=== PATIENT | female | born 2000 | race Two or more races ===

== ENCOUNTER 2024-11-11 10:36 | Outpatient (AMB) | payer MEDICAID, SELFPAY ==
--- NOTE | 2024-11-11 11:16 | OBCLNT_ITS ---
Vital Signs 11/11/24 11:17 Height 1.52 m Height Method Stated Weight 61.802 kg Weight Measurement Method Standing Scale BMI 26.6 BP 101/70 Blood Pressure Source Automatic Cuff Blood Pressure Location Left Upper Arm Position Sitting Respiration 20 Pulse 101 H Pulse Source Monitor Temp 98.1 F Temp Source Oral Pulse Oximetry (%) 98 Oxygen Delivery Method Room Air Allergies/Home Meds Allergies & Medications Allergies No Known Allergies Allergy (Verified 11/11/24 11:18) Medication Reconciliation No Known Home Medications 11/11/24 [History Confirmed 11/11/24] Intake Visit Data Collection New Patient or Established: Established Patient (seen at [facility] within 3 years) Reason for Visit:: CARE Seen by Clinical Staff ONLY (RN/MA): No Car Changer Required: No Do You Feel Safe at Home: Yes Authorities Contacted: N/A PCP or OBGYN visit in last 3 months: Yes Hx Now: Yes Are you currently on any form of Control: No Last menstrual period: 11/17/23 Pain Present Currently: No Pain Scale Used: Mathis-Curiel/Numerical Pain scale:: 0 Smoking Status Smoking Status: Never smoker Questionnaires Covid-19 Vaccine Questionnaire Has patient been vacinated for Covid-19 Have you been vacinated for Covid-19: Yes PHQ-9 PHQ-2 Over the last 2 weeks, how often have you been bothered by any of the following problems? 1. Little interest or pleasure in doing things: not at all 2. Feeling down, depressed, or hopeless: not at all Total score: 0 PHQ-9 3. Trouble falling or staying asleep, or sleeping too much: Not at all 4. Feeling tired or having little energy: Not at all 5. Poor appetite or overeating: Not at all 6. Feeling bad about yourself - or that you are a failure or have let yourself or your family down: Not at all 7. Trouble concentrating on things, such as reading the newspaper or watching television: Not at all 8. Moving or speaking so slowly that other people could have noticed? - Or the opposite - being so fidgety or restless that you have been moving around a lot more than usual: not at all 9. Thoughts that you would be better off or of hurting yourself in some way: Not at all Total score: 0 Source: Developed by Drs. Leroy Peralta, [place] Perez, [place] Marley and colleagues, with an educational raleigh from [employer]. Depression screen completed yes Social History Living Situation History Marital Status: Life Partner Lives With: Family Housing: House Tobacco History Smoking Status: Never smoker Second Hand Smoke Exposure: No Alcohol History Alcohol Intake: Never Domestic Abuse History Do You Feel Safe at Home: Yes History of Present Illness HPI Narrative 24-year-old 1 para 0 for OBI. Patient is a transfer care from Dr. Lawton's office with records. Patient has a history of irregular menses and no dates. Her last menstrual period was November 17, 2023. First ultrasound August 21, 2024. Patient was 20 weeks 5 days at that time and that corrected EDC to January 03, 2025. Patient denies any existence of social habits. Denies surgery. Denies chronic illness. Patient is O-. Antibody screen negative. She got RhoGAM at 28 weeks. CBC was 43/hemoglobin 14.7/platelets 193. RPR nonreactive. HIV negative. Hepatitis B negative. Hepatitis C negative. Patient is rubella immune. aFP, NIPT and carrier screens all negative. She had a abnormal 1 hour GTT of 145. But her repeat RPR was nonreactive. A1c 4.9 reports good movement. Denies leaking, bleeding, contractions. Patient would like Tdap if she did not get it already with Dr. Lawton OB Initial Visit OB Flowsheet OB Flowsheet Initial Weight: Not Recorded Date -?-?-?-?-?-?-?-?-?-?-?-?- EGA Weight BP Alb Glu CTX Pres Fundal ht FHR Mov Dilation Station Effacement Hx Notes Visit Note 11/11/24 -?-?-?-?-?-?-?-?-?-?-?-?- 32w 3d 61.802 kg 101/70 absent unknown 31 145 active 24-year-old 1 para 0 for OBI. Patient is a transfer from Dr. Lawton's with records. Denies any problems with the so far. She had abnormal 1 hour. She has no dates. Based on a 20-week ultrasound in August patient is 32 weeks today with a corrected EDC of January 03, 2025 Tdap next visit if patient did not get it at Dr. Lawton's. 3-hour GTT ordered. Sono at [facility] for growth. Discussed labor precautions. Continue vitamins. Return in 2 weeks OB check Menstrual History Menstrual reliability: definite Flow: normal Menstrual regularity: regular Monthly: Yes On control pills at conception: No Associated symptoms (LMP): Reports fatigue and breast tenderness OB History : 1 Infection History & Risk Evaluation History of STDs: none Genetic Screening & History Genetic Screening/Teratology Counseling - Includes patient, baby's father, or anyone in either family with: 1. Patient's age 35 years or older as of estimated date of delivery: No 2. Thalassemia (Angolan, Belarusian, Mediterranean, or Background); MCV less than 80: No 3. Neural Tube Defect (Meningomyelocele, Spina Bifida, or Anencephaly): No 4. Congenital Heart Defect: No 5. Down Syndrome: No 6. Orion-Sachs (Ashkenazi Congregational, Cajun, Welsh Sandy): No 7. Edenilson Disease (Ashkenazi Congregational): No 8. Familial Dysautonomia (Ashkenazi Congregational): No 9. Sickle Cell Disease or Trait (): No 10. Hemophilia or other blood disorders: No 11. Muscular Dystrophy: No 12. Cystic Fibrosis: No 13. Rodney's Chorea: No 14. Mental Retardation/Autism: No 15. Other inherited genetic or chromosomal disorder: No 16. Maternal Metabolic Disorder (EG,TYPE 1 Diabetes, PKU): No 17. Patient or baby's father had a child with defects not listed above: No 18. Recurrent loss or a stillbirth: No 19. Medications (including supplements, vitamins, herbs or otc drugs)/illicit/recreational drugs/alcohol since last menstrual period: No 20. Any other: No Infection History 1. Live with someone with TB or exposed to TB: No 2. Rash or viral illness since last menstrual period: No 3. Hepatitis B,C: No Other (see comments) Source: [employer] Review of Systems Review of Systems Systems Reviewed: All systems reviewed, normal except as documented Constitutional Constitutional: Reports fatigue Endocrine Endocrine: Reports fatigue Exam General Limitations: no limitations General Appearance: alert, in no apparent distress, comfortable, cooperative, healthy appearing, well developed and well groomed Head Head exam: atraumatic, normocephalic and normal inspection Neck Neck exam: Present normal inspection, full ROM and trachea midline Chest Chest inspection: Present normal inspection and symmetric chest wall rise Resp Respiratory exam: Present normal lung sounds bilaterally Card Cardiovascular exam: Present regular rate, normal rhythm and normal heart sounds Abdominal Abdominal exam: Present soft and normal bowel sounds Psych Psychiatric exam: Present normal affect and normal mood Office Procedures OB Clinic LOC & Office Proc's Nursing/Assessment Patient Status: Initial/New Patient OB Clinic Nursing Assessment: Medication Reconciliation, Update PMH in EMR and Vital Signs OB Clinic Coordination of Care: Complex Care and Chronic Disease 1-5, Consen t,records obtained, informed consent, Education Simp Pt/Fam, Lab and Imaging orders, Results/Orders obtained and Staff clarify orders Special Needs: Heart tones New Patient Charge New Patient Point Assignment: [id number] New Patient Point Charge: ACADEMIC RECORDS SPECIALIST Level 4 ([id number]) Assessment & Plan Diagnosis / Problem List (1) Encounter for supervision of high risk in third trimester, antepartum: Status: Acute (2) Size of fetus inconsistent with dates in third trimester: Status: Acute Plan 3-hour GTT. Patient scheduled for growth sono at [facility]. Discussed labor precautions. Offered Tdap. Patient will get it if she did not get Dr. Lawton's. Kick count twice a day. Return in 2 weeks OB to Additional Plan Follow Up: 2 Weeks (obc)
[2024-11-11 11:17] VITALS: BP 101/70; PULSE 101; RESP 20; TEMP 36.7; O2SAT 98; BMI 26.6
== END 2024-11-11 11:36 | disposition home or self-care (01) ==
PROVIDERS: Supervising Provider Advanced Practice Midwife; Visit Provider Advanced Practice Midwife
DX: O09.893 Supervision of other high risk pregnancies, third trimester (principal); Z3A.32 32 weeks gestation of pregnancy; O26.843 Uterine size-date discrepancy, third trimester
CPT/HCPCS: 99204; G0463

== ENCOUNTER 2024-11-25 11:33 | Outpatient (AMB) | payer MEDICAID, SELFPAY ==
[2024-11-25 11:51] VITALS: BP 104/72; PULSE 110; RESP 16; TEMP 36.2; O2SAT 98; BMI 27.7
--- NOTE | 2024-11-25 11:51 | OBCLNT_ITS ---
Vital Signs 11/25/24 11:51 Height 1.52 m Height Method Stated Weight 64.127 kg Weight Measurement Method Standing Scale BMI 27.7 BP 104/72 Blood Pressure Source Automatic Cuff Blood Pressure Location Left Upper Arm Position Sitting Respiration 16 Pulse 110 H Pulse Source Monitor Temp 97.2 F Temp Source Oral Pulse Oximetry (%) 98 Oxygen Delivery Method Room Air Allergies/Home Meds Allergies & Medications Allergies No Known Allergies Allergy (Verified 11/25/24 11:52) Medication Reconciliation No Known Home Medications 11/11/24 [History Confirmed 11/25/24] Intake Visit Data Collection New Patient or Established: Established Patient (seen at [facility] within 3 years) Reason for Visit:: OBC Seen by Clinical Staff ONLY (RN/MA): No Betting Agency Counter Clerk Required: No Do You Feel Safe at Home: Yes Authorities Contacted: N/A PCP or OBGYN visit in last 3 months: Yes Date of Last PCP or OBGYN visit: 11/11/24 Hx Now: Yes Are you currently on any form of Control: No Pain Present Currently: No Pain Scale Used: Mathis-Curiel/Numerical Pain scale:: 0 Smoking Status Smoking Status: Never smoker Questionnaires Covid-19 Vaccine Questionnaire Has patient been vacinated for Covid-19 Have you been vacinated for Covid-19: Yes PHQ-9 PHQ-2 Over the last 2 weeks, how often have you been bothered by any of the following problems? 1. Little interest or pleasure in doing things: not at all 2. Feeling down, depressed, or hopeless: not at all Total score: 0 PHQ-9 3. Trouble falling or staying asleep, or sleeping too much: Not at all 4. Feeling tired or having little energy: Not at all 5. Poor appetite or overeating: Not at all 6. Feeling bad about yourself - or that you are a failure or have let yourself or your family down: Not at all 7. Trouble concentrating on things, such as reading the newspaper or watching television: Not at all 8. Moving or speaking so slowly that other people could have noticed? - Or the opposite - being so fidgety or restless that you have been moving around a lot more than usual: not at all 9. Thoughts that you would be better off or of hurting yourself in some way: Not at all Total score: 0 If you checked off any problems, how difficult have these problems made it for you to do your work, take care of things at home, or get along with other people?: not difficult at all Source: Developed by Drs. Leroy Peralta, [place] Perez, [place] Marley and colleagues, with an educational raleigh from [employer]. Depression screen completed yes Social History Living Situation History Marital Status: Lives With: Family Housing: House Tobacco History Smoking Status: Never smoker Second Hand Smoke Exposure: No Alcohol History Alcohol Intake: Never Domestic Abuse History Do You Feel Safe at Home: Yes Care OB Visit Log OB Flowsheet Initial Weight: Not Recorded Date -?-?-?-?-?-?-?-?-?-?-?-?- EGA Weight BP Alb Glu CTX Pres Fundal ht FHR Mov Dilation Station Effacement Hx Notes Visit Note 11/11/24 -?-?-?-?-?-?-?-?-?-?-?-?- 32w 3d 61.802 kg 101/70 absent unknown 31 145 active 24-year-old 1 para 0 for OBI. Patient is a transfer from Dr. Lawton's with records. Denies any problems with the so far. She had abnormal 1 hour. She has no dates. Based on a 20-week ultrasound in August patient is 32 weeks today with a corrected EDC of January 03, 2025 Tdap next visit if patient did not get it at Dr. Lawton's. 3-hour GTT ordered. Sono at [facility] for growth. Discussed labor precautions. Continue vitamins. Return in 2 weeks OB check 11/25/24 -?-?-?-?-?-?-?-?-?-?-?-?- 34w 3d 64.127 kg 104/72 absent cephalic 34 145 active doing well. good movement. denies UC,VB,LOF. no PIH complaints discuss 3 hr gtt, avoid sugary food. discuss {PTL ptrecaution, fkc bid. f/u sono this week. rtc 2 weeks DIONE Calculator Estimated Delivery Date Method Current WG Current Estimate 01/03/25 Ultrasound #1 34w 3d Other Estimates 08/23/24 LMP (Uncertain) 53w 3d 01/03/25 Manual 34w 3d No Dates, final DIONE: 01/03/25 Notes Visit Date: 11/25/24 Last Updated by: Zulema Castañeda CNM 11/12/24: 3 hr gtt wnl all value Visit Date: 11/11/24 Last Updated by: Zulema Castañeda CNM 24 yo . No Dates. 1st sono: 08/21/24. IUP 20w5. EDC: 01/03/25 OB panel: O-/ABS-. Rhogam given at 28 week. 43/14/193, rpr;;nr, rub imm, HBSAG-, HIV-, GC/CT-. AFP/NIPT/carrier screen-, 1 hr gtt: 145. A1c: 4.9, repeat RPR: NR Office Procedures OBC Clinic LOC & Office Proc's Nursing/Assessment Patient Status: Established Patient OB Clinic Nursing Assessment: Medication Reconciliation, Update PMH in EMR and Vital Signs OB Clinic Coordination of Care: Education Complex Pt/Fam, Consent,records obtained, informed consent, Lab and Imaging orders, Results/Orders obtained and Staff clarify orders Special Needs: Heart tones Established Patient Charge Established Patient Point Assignment: 115 Established Patient Point Charge: EP Level 3 (80-115) Assessment & Plan Diagnosis / Problem List (1) Encounter for supervision of high risk in third trimester, antepartum: Status: Acute Plan discuss PTL s/s, review fkv bid. f/u sono this week, discuss 3hr gtt results, discuss diet and weight. walk 40 minute daily. rtc 2 week for GBS Additional Plan Follow Up: 2 Weeks (gbs)
== END 2024-11-25 12:02 | disposition home or self-care (01) ==
LOC: HODSOBC 11:33
PROVIDERS: Supervising Provider Advanced Practice Midwife; Visit Provider Advanced Practice Midwife
DX: O09.93 Supervision of high risk pregnancy, unspecified, third trimester (principal); Z3A.34 34 weeks gestation of pregnancy
CPT/HCPCS: 99213; G0463

== ENCOUNTER 2024-12-08 09:32 | Outpatient (AMB) | payer MEDICAID, SELFPAY ==
--- NOTE | 2024-12-08 10:03 | OBCLNT_ITS ---
Vital Signs 12/08/24 10:04 Height 1.52 m Height Method Stated Weight 65.771 kg Weight Measurement Method Standing Scale BMI 28.4 BP 120/88 H Blood Pressure Source Automatic Cuff Blood Pressure Location Right Upper Arm Position Sitting Respiration 17 Pulse 84 Pulse Source Monitor Temp 97.9 F Temp Source Temporal Artery Scan Pulse Oximetry (%) 98 Oxygen Delivery Method Room Air Allergies/Home Meds Allergies & Medications Allergies No Known Allergies Allergy (Verified 12/08/24 10:06) Medication Reconciliation No Known Home Medications 11/11/24 [History Confirmed 12/08/24] Intake Visit Data Collection New Patient or Established: Established Patient (seen at [facility] within 3 years) Reason for Visit:: OBC Seen by Clinical Staff ONLY (RN/MA): No Concrete Engineering Technician Required: No Do You Feel Safe at Home: Yes Authorities Contacted: N/A PCP or OBGYN visit in last 3 months: Yes Date of Last PCP or OBGYN visit: 11/25/24 Hx Now: Yes Are you currently on any form of Control: No Pain Present Currently: No Pain Scale Used: Mathis-Curiel/Numerical Pain scale:: 0 Smoking Status Smoking Status: Never smoker Questionnaires Covid-19 Vaccine Questionnaire Has patient been vacinated for Covid-19 Have you been vacinated for Covid-19: Yes PHQ-9 PHQ-2 Over the last 2 weeks, how often have you been bothered by any of the following problems? 1. Little interest or pleasure in doing things: not at all 2. Feeling down, depressed, or hopeless: not at all Total score: 0 PHQ-9 3. Trouble falling or staying asleep, or sleeping too much: Not at all 4. Feeling tired or having little energy: Not at all 5. Poor appetite or overeating: Not at all 6. Feeling bad about yourself - or that you are a failure or have let yourself or your family down: Not at all 7. Trouble concentrating on things, such as reading the newspaper or watching television: Not at all 8. Moving or speaking so slowly that other people could have noticed? - Or the opposite - being so fidgety or restless that you have been moving around a lot more than usual: not at all 9. Thoughts that you would be better off or of hurting yourself in some way: Not at all Total score: 0 If you checked off any problems, how difficult have these problems made it for you to do your work, take care of things at home, or get along with other people?: not difficult at all Source: Developed by Drs. Leroy Peralta, [place] Perez, [place] Marley and colleagues, with an educational raleigh from [employer]. Social History Living Situation History Marital Status: Life Partner Lives With: Family Housing: House Tobacco History Smoking Status: Never smoker Second Hand Smoke Exposure: No Alcohol History Alcohol Intake: Never Domestic Abuse History Do You Feel Safe at Home: Yes Care OB Visit Log OB Flowsheet Initial Weight: Not Recorded Date -?-?-?-?-?-?-?-?-?-?-?-?- EGA Weight BP Alb Glu CTX Pres Fundal ht FHR Mov Dilation Station Effacement Hx Notes Visit Note 11/11/24 -?-?-?-?-?-?-?-?-?-?-?-?- 32w 3d 61.802 kg 101/70 absent unknown 31 145 active 24-year-old 1 para 0 for OBI. Patient is a transfer from Dr. Lawton's with records. Denies any problems with the so far. She had abnormal 1 hour. She has no dates. Based on a 20-week ultrasound in August patient is 32 weeks today with a corrected EDC of January 03, 2025 Tdap next visit if patient did not get it at Dr. Lawton's. 3-hour GTT ordered. Sono at [facility] for growth. Discussed labor precautions. Continue vitamins. Return in 2 weeks OB check 11/25/24 -?-?-?-?-?-?-?-?-?-?-?-?- 34w 3d 64.127 kg 104/72 absent cephalic 34 145 active doing well. good movement. denies UC,VB,LOF. no PIH complaints discuss 3 hr gtt, avoid sugary food. discuss {PTL ptrecaution, fkc bid. f/u sono this week. rtc 2 weeks 12/08/24 -?-?-?-?-?-?-?-?-?-?-?-?- 36w 2d 65.771 kg 120/88 occasional cephalic 36 140 active doing well. report good FM. denies leaking,bleeding or regular contraction GBS today. discuss labor precaution, fkc bid, discuss danger s/s and ER precaution. rtc 1 week obc DIONE Calculator Estimated Delivery Date Method Current WG Current Estimate 01/03/25 Ultrasound #1 36w 2d Other Estimates 08/23/24 LMP (Uncertain) 55w 2d 01/03/25 Manual 36w 2d No Dates, final DIONE: 01/03/25 Notes Visit Date: 11/25/24 Last Updated by: Zulema Castañeda CNM 11/12/24: 3 hr gtt wnl all value Visit Date: 11/11/24 Last Updated by: Zulema Castañeda CNM 24 yo . No Dates. 1st sono: 08/21/24. IUP 20w5. EDC: 01/03/25 OB panel: O-/ABS-. Rhogam given at 28 week. 43/14/193, rpr;;nr, rub imm, HBSAG-, HIV-, GC/CT-. AFP/NIPT/carrier screen-, 1 hr gtt: 145. A1c: 4.9, repeat RPR: NR Office Procedures OBC Clinic LOC & Office Proc's Nursing/Assessment Patient Status: Established Patient OB Clinic Nursing Assessment: Medication Reconciliation, Update PMH in EMR and Vital Signs OB Clinic Coordination of Care: Complex Care and Chronic Disease 1-5, Education Complex Pt/Fam, Consent,records obtained, informed consent, Lab and Imaging orders and Staff clarify orders Special Needs: Heart tones Miscellaneous Interventions: Culture Specimen Collection Established Patient Charge Established Patient Point Assignment: 150 Established Patient Point Charge: EP Level 4 (120-155) Assessment & Plan Diagnosis / Problem List (1) Encounter for supervision of high risk in third trimester, antepartum: Status: Acute Plan GBS today. Discussed labor precautions and kick count. ER precautions. Increase fluids. Continue prenatals. Return in a week OB check Additional Plan Follow Up: 1 Week (obc)
[2024-12-08 10:04] VITALS: BP 120/88; PULSE 84; RESP 17; TEMP 36.6; O2SAT 98; BMI 28.4
== END 2024-12-08 10:17 | disposition home or self-care (01) ==
LOC: HODSOBC 09:32
PROVIDERS: Supervising Provider Advanced Practice Midwife; Visit Provider Advanced Practice Midwife
DX: O09.93 Supervision of high risk pregnancy, unspecified, third trimester (principal); Z3A.36 36 weeks gestation of pregnancy; Z36.85 Encounter for antenatal screening for Streptococcus B
CPT/HCPCS: 99214; G0463

== ENCOUNTER → 2024-12-11 | Outpatient (CLI) | payer MEDICAID, SELFPAY ==
--- NOTE | 2024-12-11 13:00 | XR_ITS ---
Examination: Complete OB ultrasound greater than 14 weeks Date and time of exam: December 11, 2024, 1300 hours INDICATIONS: Size dates discrepancy Findings: Viable intrauterine single fetus with single amniotic sac presentation cephalic Cardiac motion 137 bpm Placenta posterior grade 3 Medical cord insertion 3 vessels seen Amniotic fluid index 14.3 cm spine maternal right Cervix 3.2 cm Right ovary 5.4 cm arterial flow Left ovary 4.3 cm arterial flow. Composite estimated gestational age based on BPD, head circumference, abdominal circumference, femur length is 35 weeks 5 days Estimated weight 2768 g Incidental note femur measurements 2 weeks smaller than dates. Survey of intracranial anatomy, spinal anatomy, abdominal anatomy, four-chamber heart performed with no abnormalities identified. Impression: Viable intrauterine gestation in cephalic presentation.
== END | disposition home or self-care (01) ==
PROVIDERS: PCP Family Medicine; Referring Provider Advanced Practice Midwife; Visit Provider Advanced Practice Midwife
DX: O26.842 Uterine size-date discrepancy, second trimester (principal); Z3A.35 35 weeks gestation of pregnancy
CPT/HCPCS: 76805

== ENCOUNTER 2024-12-15 14:13 | Outpatient (AMB) | payer MEDICAID, SELFPAY ==
[2024-12-15 14:40] VITALS: BP 125/81; PULSE 91; RESP 17; TEMP 36.3; O2SAT 98; BMI 28.9
--- NOTE | 2024-12-15 14:40 | OBCLNT_ITS ---
Vital Signs 12/15/24 14:40 Height 1.52 m Height Method Stated Weight 66.848 kg Weight Measurement Method Standing Scale BMI 28.9 BP 125/81 Blood Pressure Source Automatic Cuff Blood Pressure Location Right Upper Arm Position Sitting Respiration 17 Pulse 91 Pulse Source Monitor Temp 97.4 F Temp Source Temporal Artery Scan Pulse Oximetry (%) 98 Oxygen Delivery Method Room Air Allergies/Home Meds Allergies & Medications Allergies No Known Allergies Allergy (Verified 12/15/24 14:43) Medication Reconciliation No Known Home Medications 11/11/24 [History Confirmed 12/15/24] Intake Visit Data Collection New Patient or Established: Established Patient (seen at [facility] within 3 years) Reason for Visit:: OBC Seen by Clinical Staff ONLY (RN/MA): No Pediatric Physical Therapy Assistant Required: No Do You Feel Safe at Home: Yes Authorities Contacted: N/A PCP or OBGYN visit in last 3 months: Yes Date of Last PCP or OBGYN visit: 12/08/24 Hx Now: Yes Are you currently on any form of Control: No Pain Present Currently: Yes Pain Location: Abdomen Pain Scale Used: Mathis-Curiel/Numerical Pain scale:: 5 Smoking Status Smoking Status: Never smoker Questionnaires Covid-19 Vaccine Questionnaire Has patient been vacinated for Covid-19 Have you been vacinated for Covid-19: No PHQ-9 PHQ-2 Over the last 2 weeks, how often have you been bothered by any of the following problems? 1. Little interest or pleasure in doing things: not at all 2. Feeling down, depressed, or hopeless: not at all Total score: 0 PHQ-9 3. Trouble falling or staying asleep, or sleeping too much: Not at all 4. Feeling tired or having little energy: Not at all 5. Poor appetite or overeating: Not at all 6. Feeling bad about yourself - or that you are a failure or have let yourself or your family down: Not at all 7. Trouble concentrating on things, such as reading the newspaper or watching television: Not at all 8. Moving or speaking so slowly that other people could have noticed? - Or the opposite - being so fidgety or restless that you have been moving around a lot more than usual: not at all 9. Thoughts that you would be better off or of hurting yourself in some way: Not at all Total score: 0 If you checked off any problems, how difficult have these problems made it for you to do your work, take care of things at home, or get along with other people?: not difficult at all Source: Developed by Drs. Leroy Peralta, [place] Perez, London Marley and colleagues, with an educational raleigh from [employer] Depression screen completed yes Social History Living Situation History Marital Status: Life Partner Lives With: Family Housing: House Tobacco History Smoking Status: Never smoker Second Hand Smoke Exposure: No Alcohol History Alcohol Intake: Never Domestic Abuse History Do You Feel Safe at Home: Yes Care OB Visit Log OB Flowsheet Initial Weight: Not Recorded Date -?-?-?-?-?-?-?-?-?-?-?-?- EGA Weight BP Alb Glu CTX Pres Fundal ht FHR Mov Dilation Station Effacement Hx Notes Visit Note 11/11/24 -?-?-?-?-?-?-?-?-?-?-?-?- 32w 3d 61.802 kg 101/70 absent unknown 31 145 active 24-year-old 1 para 0 for OBI. Patient is a transfer from Dr. Lawton's with records. Denies any problems with the so far. She had abnormal 1 hour. She has no dates. Based on a 20-week ultrasound in August patient is 32 weeks today with a corrected EDC of January 03, 2025 Tdap next visit if patient did not get it at Dr. Lawton's. 3-hour GTT ordered. Sono at [facility] for growth. Discussed labor precautions. Continue vitamins. Return in 2 weeks OB check 11/25/24 -?-?-?-?-?-?-?-?-?-?-?-?- 34w 3d 64.127 kg 104/72 absent cephalic 34 145 active doing well. good movement. denies UC,VB,LOF. no PIH complaints discuss 3 hr gtt, avoid sugary food. discuss {PTL ptrecaution, fkc bid. f/u sono this week. rtc 2 weeks 12/08/24 -?-?-?-?-?-?-?-?-?-?-?-?- 36w 2d 65.771 kg 120/88 occasional cephalic 36 140 active doing well. report good FM. denies leaking,bleeding or regular contraction GBS today. discuss labor precaution, fkc bid, discuss danger s/s and ER precaution. rtc 1 week obc 12/15/24 -?-?-?-?-?-?-?-?-?-?-?-?- 37w 2d 66.848 kg 125/81 occasional cephalic 37 135 active Denies headache, blurred vision, epigastric pain. Denies leaking, bleeding. Increased pressure. Occasional contractions and backache. Fetus is active. DTRs were brisk with clonus GBS negative. P atient was sent to labor and delivery for PIH eval. Discussed PIH precautions and symptoms with patient. Increase fluids. Discussed kick count twice a day. And we discussed the sono results from December 11. The femurs 2 weeks last and the EFW was 2768. So we will notify peds so that they can reevaluate the baby after . Return in a week DIONE Calculator Estimated Delivery Date Method Current WG Current Estimate 01/03/25 Ultrasound #1 37w 2d Other Estimates 08/23/24 LMP (Uncertain) 56w 2d 01/10/25 Ultrasound #2 36w 2d 01/03/25 Manual 37w 2d No Dates, final DIONE: 01/03/25, femur length 2 week Notes Visit Date: 12/15/24 Last Updated by: Zulema Castañeda CNM 12/15: GBS- 12/11growth sono: 35w5, efw 2768. femur measure 2 week less Visit Date: 11/25/24 Last Updated by: Zulema Castañeda CNM 11/12/24: 3 hr gtt wnl all value Visit Date: 11/11/24 Last Updated by: Zulema Castañeda CNM 24 yo . No Dates. 1st sono: 08/21/24. IUP 20w5. EDC: 01/03/25 OB panel: O-/ABS-. Rhogam given at 28 week. 4314/193, rpr;;nr, rub imm, HBSAG-, HIV-, GC/CT-. AFP/NIPT/carrier screen-, 1 hr gtt: 145. A1c: 4.9, repeat RPR: NR Office Procedures OBC Clinic LOC & Office Proc's Nursing/Assessment Patient Status: Established Patient OB Clinic Nursing Assessment: Medication Reconciliation, Update PMH in EMR and Vital Signs OB Clinic Coordination of Care: Complex Care and Chronic Disease 1-5, Education Complex Pt/Fam, Consent,records obtained, informed consent and Staff clarify orders Special Needs: Heart tones Established Patient Charge Established Patient Point Assignment: 120 Established Patient Point Charge: EP Level 4 (120-155) Assessment & Plan Diagnosis / Problem List (1) Size of fetus inconsistent with dates in third trimester: Status: Acute Plan Patient to labor and delivery for PIH eval. Discussed PIH signs and symptoms. Discussed ER precautions. Kick count twice a day. Discussed ultrasound results from December 11. Labor precautions reviewed. Return in a week OB check Additional Plan Follow Up: 1 Week (obc)
== END 2024-12-15 14:59 | disposition home or self-care (01) ==
LOC: HODSOBC 14:13
PROVIDERS: Supervising Provider Advanced Practice Midwife; Visit Provider Advanced Practice Midwife
DX: O09.893 Supervision of other high risk pregnancies, third trimester (principal); O26.843 Uterine size-date discrepancy, third trimester; Z3A.37 37 weeks gestation of pregnancy
CPT/HCPCS: 99214; G0463

== ENCOUNTER 2024-12-25 13:02 | Outpatient (AMB) | payer MEDICAID, SELFPAY ==
[2024-12-25 13:07] VITALS: BP 112/79; PULSE 106; RESP 20; TEMP 36.4; O2SAT 96; BMI 29.7
--- NOTE | 2024-12-25 13:07 | OBCLNT_ITS ---
Vital Signs 12/25/24 13:07 Height 1.52 m Height Method Stated Weight 68.549 kg Weight Measurement Method Standing Scale BMI 29.7 BP 112/79 Blood Pressure Source Automatic Cuff Blood Pressure Location Left Upper Arm Position Sitting Respiration 20 Pulse 106 H Pulse Source Monitor Temp 97.5 F Temp Source Oral Pulse Oximetry (%) 96 Oxygen Delivery Method Room Air Allergies/Home Meds Allergies & Medications Allergies No Known Allergies Allergy (Verified 12/25/24 13:15) Medication Reconciliation No Known Home Medications 11/11/24 [History Confirmed 12/25/24] Intake Visit Data Collection New Patient or Established: Established Patient (seen at [facility] within 3 years) Reason for Visit:: CARE Seen by Clinical Staff ONLY (RN/MA): No Garage Door Installer Required: No Do You Feel Safe at Home: Yes Authorities Contacted: N/A PCP or OBGYN visit in last 3 months: Yes Hx Now: Yes Are you currently on any form of Control: No Pain Present Currently: No Pain Scale Used: Mathis-Curiel/Numerical Pain scale:: 0 Smoking Status Smoking Status: Never smoker Immunizations Flu Vaccine in the Last 12 Months: No Flu Vaccine Exclusion Criteria: Refused by Patient Questionnaires Covid-19 Vaccine Questionnaire Has patient been vacinated for Covid-19 Have you been vacinated for Covid-19: No PHQ-9 PHQ-2 Over the last 2 weeks, how often have you been bothered by any of the following problems? 1. Little interest or pleasure in doing things: not at all 2. Feeling down, depressed, or hopeless: not at all Total score: 0 PHQ-9 3. Trouble falling or staying asleep, or sleeping too much: Not at all 4. Feeling tired or having little energy: Not at all 5. Poor appetite or overeating: Not at all 6. Feeling bad about yourself - or that you are a failure or have let yourself or your family down: Not at all 7. Trouble concentrating on things, such as reading the newspaper or watching television: Not at all 8. Moving or speaking so slowly that other people could have noticed? - Or the opposite - being so fidgety or restless that you have been moving around a lot more than usual: not at all 9. Thoughts that you would be better off or of hurting yourself in some way: Not at all Total score: 0 Source: Developed by Drs. Leroy Peralta, [place] Perez, London Marley and colleagues, with an educational raleigh from [employer]. Depression screen completed yes Social History Living Situation History Lives With: Family Housing: House Tobacco History Smoking Status: Never smoker Second Hand Smoke Exposure: No Alcohol History Alcohol Intake: Never Domestic Abuse History Do You Feel Safe at Home: Yes Care OB Visit Log OB Flowsheet Initial Weight: Not Recorded Date -?-?-?-?-?-?-?-?-?-?-?-?- EGA Weight BP Alb Glu CTX Pres Fundal ht FHR Mov Dilation Station Effacement Hx Notes Visit Note 11/11/24 -?-?-?-?-?-?-?-?-?-?-?-?- 32w 3d 61.802 kg 101/70 absent unknown 31 145 active 24-year-old 1 para 0 for OBI. Patient is a transfer from Dr. Lawton'wilfredo with records. Denies any problems with the so far. She had abnormal 1 hour. She has no dates. Based on a 20-week ultrasound in August patient is 32 weeks today with a corrected EDC of January 03, 2025 Tdap next visit if patient did not get it at Dr. Lawton's. 3-hour GTT ordered. Sono at [facility] for growth. Di scussed labor precautions. Continue vitamins. Return in 2 weeks OB check 11/25/24 -?-?-?-?-?-?-?-?-?-?-?-?- 34w 3d 64.127 kg 104/72 absent cephalic 34 145 active doing well. good movement. denies UC,VB,LOF. no PIH complaints discuss 3 hr gtt, avoid sugary food. discuss {PTL ptrecaution, fkc bid. f/u sono this week. rtc 2 weeks 12/08/24 -?-?-?-?-?-?-?-?-?-?-?-?- 36w 2d 65.771 kg 120/88 occasional cephalic 36 140 active doing well. report good FM. denies leaking,bleeding or regular contraction GBS today. discuss labor precaution, fkc bid, discuss danger s/s and ER precaution. rtc 1 week obc 12/15/24 -?-?-?-?-?-?-?-?-?-?-?-?- 37w 2d 66.848 kg 125/81 occasional cephalic 37 135 active Denies headache, blurred vision, epigastric pain. Denies leaking, bleeding. Increased pressure. Occasional contractions and backache. Fetus is active. DTRs were brisk with clonus GBS negative. P atient was sent to labor and delivery for PIH eval. Discussed PIH precautions and symptoms with patient. Increase fluids. Discussed kick count twice a day. And we discussed the sono results from December 11. The femurs 2 weeks last and the EFW was 2768. So we will notify peds so that they can reevaluate the baby after . Return in a week 12/25/24 -?-?-?-?-?-?-?-?-?-?-?-?- 38w 5d 68.549 kg 112/79 absent cephalic 38 135 active +50lb, reports good movement. Denies leaking or bleeding. Denies contractions, leaking Discussed weight gain. Discussed kick count twice a day. We discussed activities to help encourage contractions. And I discussed the effects of increased weight gain return in a week OB check DIONE Calculator Estimated Delivery Date Method Current WG Current Estimate 01/03/25 Ultrasound #1 38w 5d Other Estimates 08/23/24 LMP (Uncertain) 57w 5d 01/10/25 Ultrasound #2 37w 5d 01/03/25 Manual 38w 5d No Dates, final DIONE: 01/03/25, femur length 2 week Notes Visit Date: 12/15/24 Last Updated by: Zulema Castañeda CNM 12/15: GBS- 12/11growth sono: 35w5, efw 2768. femur measure 2 week less Visit Date: 11/25/24 Last Updated by: Zulema Castañeda CNM 11/12/24: 3 hr gtt wnl all value Visit Date: 11/11/24 Last Updated by: Zulema Castañeda CNM 24 yo . No Dates. 1st sono: 08/21/24. IUP 20w5. EDC: 01/03/25 OB panel: O-/ABS-. Rhogam given at 28 week. 43/14/193, rpr;;nr, rub imm, HBSAG-, HIV-, GC/CT-. AFP/NIPT/carrier screen-, 1 hr gtt: 145. A1c: 4.9, repeat RPR: NR Office Procedures OBC Clinic LOC & Office Proc's Nursing/Assessment Patient Status: Established Patient OB Clinic Nursing Assessment: Medication Reconciliation, Update PMH in EMR and Vital Signs OB Clinic Coordination of Care: Complex Care and Chronic Disease 1-5, Education Complex Pt/Fam, Consent,records obtained, informed consent, 1 Ins Authorization, Lab and Imaging orders, Results/Orders obtained and Staff clarify orders Special Needs: Heart tones Established Patient Charge Established Patient Point Assignment: 155 Established Patient Point Charge: EP Level 4 (120-155) Assessment & Plan Diagnosis / Problem List (1) Size of fetus inconsistent with dates in third trimester: Status: Acute Plan Discussed diet and weight gain. Discussed effects of increased weight gain on . Discussed labor precautions and kick count. We discussed activities to encourage labor return a week OB check Additional Plan Follow Up: 1 Week (obc)
== END 2024-12-25 13:34 | disposition home or self-care (01) ==
LOC: HODSOBC 13:02
PROVIDERS: Supervising Provider Advanced Practice Midwife; Visit Provider Advanced Practice Midwife
DX: O09.893 Supervision of other high risk pregnancies, third trimester (principal); O26.843 Uterine size-date discrepancy, third trimester; Z3A.38 38 weeks gestation of pregnancy
CPT/HCPCS: 99214; G0463

== ENCOUNTER 2025-01-01 09:02 | Outpatient (AMB) | payer MEDICAID, SELFPAY ==
--- NOTE | 2025-01-01 09:11 | OBCLNT_ITS ---
Vital Signs 01/01/25 09:25 Height 1.52 m Height Method Stated Weight 69.173 kg Weight Measurement Method Standing Scale BMI 29.9 BP 132/87 H Blood Pressure Source Automatic Cuff Blood Pressure Location Left Upper Arm Position Standing Respiration 18 Pulse 96 Pulse Source Monitor Temp 97.2 F Temp Source Oral Pulse Oximetry (%) 97 Oxygen Delivery Method Room Air Allergies/Home Meds Allergies & Medications Allergies No Known Allergies Allergy (Verified 01/01/25 09:26) Medication Reconciliation No Known Home Medications 11/11/24 [History Confirmed 01/01/25] Intake Visit Data Collection New Patient or Established: Established Patient (seen at [facility] within 3 years) Reason for Visit:: OBC Seen by Clinical Staff ONLY (RN/MA): No Bag Valver Required: No Do You Feel Safe at Home: Yes Authorities Contacted: N/A PCP or OBGYN visit in last 3 months: Yes Date of Last PCP or OBGYN visit: 12/25/24 Hx Now: Yes Are you currently on any form of Control: No Pain Present Currently: No Pain Scale Used: Mathis-Curiel/Numerical Pain scale:: 0 Smoking Status Smoking Status: Never smoker Immunizations Flu Vaccine in the Last 12 Months: No Flu Vaccine Exclusion Criteria: No Exclusion Criteria Questionnaires Covid-19 Vaccine Questionnaire Has patient been vacinated for Covid-19 Have you been vacinated for Covid-19: Yes PHQ-9 PHQ-2 Over the last 2 weeks, how often have you been bothered by any of the following problems? 1. Little interest or pleasure in doing things: not at all 2. Feeling down, depressed, or hopeless: not at all Total score: 0 PHQ-9 3. Trouble falling or staying asleep, or sleeping too much: Not at all 4. Feeling tired or having little energy: Not at all 5. Poor appetite or overeating: Not at all 6. Feeling bad about yourself - or that you are a failure or have let yourself or your family down: Not at all 7. Trouble concentrating on things, such as reading the newspaper or watching television: Not at all 8. Moving or speaking so slowly that other people could have noticed? - Or the opposite - being so fidgety or restless that you have been moving around a lot more than usual: not at all 9. Thoughts that you would be better off or of hurting yourself in some way: Not at all Total score: 0 If you checked off any problems, how difficult have these problems made it for you to do your work, take care of things at home, or get along with other people?: not difficult at all Source: Developed by Drs. Leroy Peralta, [place] Perez, London Marley and colleagues, with an educational raleigh from [employer]. Depression screen completed yes Social History Living Situation History Lives With: Family Housing: House Tobacco History Smoking Status: Never smoker Second Hand Smoke Exposure: No Alcohol History Alcohol Intake: Never Domestic Abuse History Do You Feel Safe at Home: Yes Care OB Visit Log OB Flowsheet Initial Weight: Not Recorded Date -?-?-?-?-?-?-?-?-?-?-?-?- EGA Weight BP Alb Glu CTX Pres Fundal ht FHR Mov Dilation Station Effacement Hx Notes Visit Note 11/11/24 -?-?-?-?-?-?-?-?-?-?-?-?- 32w 3d 61.802 kg 101/70 absent unknown 31 145 active 24-year-old 1 para 0 for OBI. Patient is a transfer from Dr. Lawton's with records. Denies any problems with the so far. She had abnormal 1 hour. She has no dates. Based on a 20-week ultrasound in August patient is 32 weeks today with a corrected EDC of January 03, 2025 Tdap next visit if patient did not get it at Dr. Lawton's. 3-hour GTT ordered. Sono at [facility] for growth. Discussed labor precautions. Continue vitamins. Return in 2 weeks OB check 11/25/24 -?-?-?-?-?-?-?-?-?-?-?-?- 34w 3d 64.127 kg 104/72 absent cephalic 34 145 active doing well. good movement. denies UC,VB,LOF. no PIH complaints discuss 3 hr gtt, avoid sugary food. discuss {PTL ptrecaution, fkc bid. f/u sono this week. rtc 2 weeks 12/08/24 -?-?-?-?-?-?-?-?-?-?-?-?- 36w 2d 65.771 kg 120/88 occasional cephalic 36 140 active doing well. report good FM. denies leaking,bleeding or regular contraction GBS today. discuss labor precaution, fkc bid, discuss danger s/s and ER precaution. rtc 1 week obc 12/15/24 -?-?-?-?-?-?-?-?-?-?-?-?- 37w 2d 66.848 kg 125/81 occasional cephalic 37 135 active Denies headache, blurred vision, epigastric pain. Denies leaking, bleeding. Increased pressure. Occasional contractions and backache. Fetus is active. DTRs were brisk with clonus GBS negative. P atient was sent to labor and delivery for PIH eval. Discussed PIH precautions and symptoms with patient. Increase fluids. Discussed kick count twice a day. And we discussed the sono results from December 11. The femurs 2 weeks last and the EFW was 2768. So we will notify peds so that they can reevaluate the baby after . Return in a week 12/25/24 -?-?-?-?-?-?-?-?-?-?-?-?- 38w 5d 68.549 kg 112/79 absent cephalic 38 135 active +50lb, reports good movement. Denies leaking or bleeding. Denies contractions, leaking Discussed weight gain. Discussed kick count twice a day. We discussed activities to help encourage contractions. And I discussed the effects of increased weight gain return in a week OB check 01/01/25 -?-?-?-?-?-?-?-?-?-?-?-?- 39w 5d 69.173 kg 132/87 occasional cephalic 39 135 active 1 -2 50 Headache, blurred vision, epigastric pain. Denies leaking or bleeding, unsure about contractions. Reports good mood Patient to labor and delivery for rule out cholestasis and probable admit of induction. Also schedule patient for PIH labs. Discussed labor precautions and kick count. Discussed signs danger signs symptoms and PIH precautions all return in a week if she is not For induction DIONE Calculator Estimated Delivery Date Method Current WG Current Estimate 01/03/25 Ultrasound #1 39w 5d Other Estimates 08/23/24 LMP (Uncertain) 58w 5d 01/10/25 Ultrasound #2 38w 5d 01/03/25 Manual 39w 5d No Dates, final DIONE: 01/03/25, femur length 2 week Notes Visit Date: 12/15/24 Last Updated by: Zulema Castañeda CNM 12/15: GBS- 12/11growth sono: 35w5, efw 2768. femur measure 2 week less Visit Date: 11/25/24 Last Updated by: Zulema Castañeda CNM 11/12/24: 3 hr gtt wnl all value Visit Date: 11/11/24 Last Updated by: Zulema Castañeda CNM 24 yo . No Dates. 1st sono: 08/21/24. IUP 20w5. EDC: 01/03/25 OB panel: O-/ABS-. Rhogam given at 28 week. 43/193, rpr;;nr, rub imm, HBSAG-, HIV-, GC/CT-. AFP/NIPT/carrier screen-, 1 hr gtt: 145. A1c: 4.9, repeat RPR: NR Office Procedures OBC Clinic LOC & Office Proc's Nursing/Assessment Patient Status: Established Patient OB Clinic Nursing Assessment: Medication Reconciliation, Update PMH in EMR and Vital Signs OB Clinic Coordination of Care: Consent,records obtained, informed consent, Education Simp Pt/Fam, Lab and Imaging orders and Results/Orders obtained Special Needs: Heart tones Established Patient Charge Established Patient Point Assignment: 100 Established Patient Point Charge: EP Level 3 (80-115) Assessment & Plan Diagnosis / Problem List (1) Size of fetus inconsistent with dates in third trimester: Status: Acute (2) Encounter for supervision of high risk in third trimester, antepartum: Status: Acute Plan Sent to labor and delivery for probable induction due to cholestasis. PIH workup and NST BPP. Discussed labor precautions and kick count. And I also discussed cholestasis and induction of labor with patient. Patient will return in a week if she is undelivered at Additional Plan Follow Up: 1 Week (obc)
[2025-01-01 09:25] VITALS: BP 132/87; PULSE 96; RESP 18; TEMP 36.2; O2SAT 97; BMI 29.9
== END 2025-01-01 10:17 | disposition home or self-care (01) ==
PROVIDERS: Supervising Provider Advanced Practice Midwife; Visit Provider Advanced Practice Midwife
DX: O09.893 Supervision of other high risk pregnancies, third trimester (principal); O26.843 Uterine size-date discrepancy, third trimester; O99.891 Other specified diseases and conditions complicating pregnancy; R51.9 Headache, unspecified; Z3A.39 39 weeks gestation of pregnancy
CPT/HCPCS: 99213; G0463

== ENCOUNTER 2025-01-03 08:23 | Inpatient (IN) | payer MEDICAID, SELFPAY ==
[2025-01-01] VITALS (42 sets, daily range): BP systolic 100–133; BP diastolic 55–80; PULSE 68–101; RESP 14–97; TEMP 36.6–36.8; O2SAT 97–100; BMI 29.9
--- NOTE | 2025-01-01 11:07 | XR_ITS ---
Examination: Complete OB ultrasound greater than 14 weeks Date and time of exam: January 01, 2025, 11:36 a.m. INDICATIONS: Supervision of normal Findings: Viable intrauterine single fetus with single amniotic sac presentation cephalic Cardiac motion 157 bpm Placenta posterior grade 3 The cord insertion 3 vessels seen Amniotic fluid index 14.6 cm Ovaries obscured by bowel gas. Composite estimated gestational age based on BPD, head circumference, abdominal circumference, femur length is 38 weeks 6 days Estimated weight 3668 g. Survey of intracranial anatomy, spinal anatomy, abdominal anatomy, four-chamber heart performed with no abnormalities identified. Impression: Viable intrauterine gestation in cephalic presentation.
[2025-01-01 12:03] LABS: Collection Type, Urine Clean Catch
[2025-01-01 12:24] LABS: Basophils # (Auto) 0.0 Thou/mm3 (0.0-0.2); Basophils % (Auto) 0 % (0-2.5); Eosinophils # (Auto) 0.1 Thou/mm3 (0.0-0.5); Eosinophils % (Auto) 1 % (0-10); Hematocrit 32.5 % (36.0-46.0); Hemoglobin 10.3 g/dL (12.0-16.0); Immature Granulocytes Auto 0.11 Thou/mm3 (0.00-0.00); Lymphocytes # (Auto) 2.7 Thou/mm3 (1.0-4.8); Lymphocytes % (Auto) 24 % (10-50); Mean Corpuscular HGB Conc 31.7 g/dl (31.0-37.0); Mean Corpuscular Hemoglobin 25.5 pg (25.0-35.0); Mean Corpuscular Volume 80 fL (80-100); Monocytes # (Auto) 0.6 Thou/mm3 (0.0-0.8); Monocytes % (Auto) 6 % (0-12); Neutrophils # (Auto) 7.7 Thou/mm3 (1.8-7.7); Neutrophils % (Auto) 69 % (37-80); Nucleated Red Blood Cell # 0.00 Thou/mm3 (0.00-0.00); Nucleated Red Blood Cell % 0 /100 WBC (0); Platelet Count 131 Thou/mm3 (140-440); RDW Standard Deviation 45.1 fL (36.4-46.3); Red Blood Count 4.04 Miln/mm3 (4.00-5.20); White Blood Count 11.2 Thou/mm3 (3.6-11.0)
[2025-01-01 12:36] LABS: Fibrinogen 545 mg/dL (175-375); INR 1.0 (0.9-1.3); Partial Thromboplastin Time 27.2 Seconds (22.0-36.0); Prothrombin Time 10.2 Seconds (9.0-12.2)
[2025-01-01 12:50] LABS: Bacteria,Urine Rare; Bilirubin,Urine Negative (Negative); Blood,Urine Negative (Negative); Clarity,Urine Clear (Clear/Hazy); Color,Urine Colorless (Lt Yel-Yel); Glucose, Urine Negative (Negative); Ketones,Urine Negative (Negative); Leukocyte Esterase,Urine Positive (Negative); Nitrite,Urine Negative (Negative); PH,Urine 6.5 (5.0-7.0); Protein,Urine Negative (Neg - Trace); RBC,Urine < 1 /hpf (0-3); Specific Gravity,Urine 1.005 (1.001-1.035); Squamous Epithelial Cell,Urine 1 /hpf (0-5); Urobilinogen,Urine Negative mg/dL (0.0-1.0); WBC,Urine 2 /hpf (0-5)
[2025-01-01 12:51] LABS: Alanine Aminotransferase 8 U/L (10-49); Albumin, Serum 3.8 gm/dL (3.5-5.0); Albumin/Globulin Ratio 1.9 (1.2-2.2); Alkaline Phosphatase 232 U/L (46-116); Anion Gap 11 (7-16); Aspartate Amino Transferase 17 U/L (0-34); BUN/Creatinine Ratio 13 Ratio (12-20); Bilirubin,Total 0.5 mg/dL (0.3-1.2); Blood Urea Nitrogen 9 mg/dL (9-23); Calcium 9.0 mg/dL (8.3-10.6); Calcium (Corrected) 9.2 mg/dL (8.5-10.1); Carbon Dioxide 19.8 mMol/L (20.0-31.0); Chloride 107 mMol/L (98-107); Creatinine (Component) 0.7 mg/dL (0.6-1.3); Estimated Creatinine Clearance 108.6 mL/min (>60); Globulin 2.0 gm/dL (2.3-3.5); Glucose 124 mg/dL (74-106); LDH (Lactate Dehydrogenase) 250 U/L (120-246); Osmolality,Calculated 275 (275-295); Potassium 3.6 mMol/L (3.4-5.1); Sodium 138 mMol/L (136-145); Total Protein 5.8 gm/dL (5.7-8.2); Uric Acid 5.5 mg/dL (3.1-7.8); eGFR > 60 See Note
[2025-01-01 14:07] LABS: Creatinine,Random Urine 27 mg/dL (30-125); Protein Total, Random Urine < 6 mg/dL (1-14)
[2025-01-01 14:55] LABS: Syphilis Nonreactive (Nonreactive)
--- NOTE | 2025-01-01 18:05 | ESHP_ITS ---
Documentation for date of: 01/01/25 OB Labor/Induct. HPI History of Present Illness Chief complaint: induction for cholestasis : 1 Para: 0 Term pregnancies: 0 pregnancies: 0 Living children: 0 History of Abortions: Spontaneous and Elective: 0 History of Vaginal deliveries: 0 History of sections: No History of : No Date of last menstrual period: 03/29/24 DIONE: 01/03/25 Gestational Age (weeks): 39 Gestational Age (days): 5 Gestational age based on last menstrual period: 39 History of present illness: 24-year-old 1 para 0 for induction of labor. Patient was a transfer of care at [address] Horton office. With records. Patient denies social habits. Denies surgery. Denies chronic illness. Her last. Was March 29, 2024. This gives due date January 03, 2025 that was based on a 28-week ultrasound. Otherwise patient has poor dates. O-, antibody screen negative. Patient got her RhoGAM at 28 weeks. GC and Chlamydia were negative. GBS negative. Her 1 hour was 145. 3-hour GTT was not done because A1c was 4.9 rubella immune, RPR nonreactive. GC and Chlamydia were negative. Hepatitis B negative, HIV negative, and hep C negative. aFP, NIPT and carrier screens were all negative. Reports movement. Denies leaking or bleeding. Today in the office patient was complaining of general body itching that got worse in the last few days. And she had a mild elevation of blood pressure as well so patient was sent to labor and delivery for NST, BPP. PIH labs which were normal. And a sonogram that showed EFW of 3100 g. History of Present Dating criteria: LMP confirmed by 2nd trimester US Adequate Care: Yes Ultrasounds: normal mid trimester US Obstetrical complications: none Medical complications: none Labs Labs: Negative: RPR, Hepatitis B, Rubella Titre, HIV, Chlamydia, Gonorrhea and Group Beta Strep Review of Systems Review of Systems Systems Reviewed: All systems reviewed, normal except as documented Past Medical History Surgical History SURGICAL: Negative Section Meds Home Medications and Allergies Home Medications ?Medication ?Instructions ?Recorded ?Confirmed ?Type No Known Home Medications 11/11/2412/04 History Allergies Allergy/AdvReac Type Severity Reaction Status Date / Time No Known Allergies Allergy Verified 01/01/25 13:09 OB Exam Physical Exam Vital signs: Temp Pulse Resp BP Pulse Ox 97.9 F 75 18 104/71 98 01/01/25 11:10 01/01/25 16:43 01/01/25 11:10 01/01/25 16:43 01/01/25 14:07 Narrative: Alert and oriented. Normal heart rate and rhythm. Lungs clear no wheezes. Gravid abdomen. Gynecoid pelvis. Estimated weight 7 pounds 8. Vaginal exam on admission was long, 1, -2. Vertex. Bag water intact. heart category 1 with accelerations and moderate variability. Occasional contraction Detailed Labor and Delivery Exam Dilation (cm): 1 Effacement (%): Thick Cervix position: posterior station: -2 Consistency: medium Presentation: Vertex Cervical ripeness score: 3 Membranes: intact Baseline heart rate: 145 monitor accelerations: 15x15 monitor decelerations: None terminal make up operator variability: Moderate (11-25) Contraction frequency (min): occ Contraction duration (sec): 30 Tachysystole: No Contraction intensity: Mild OB Results Labs 01/01/25 11:32 01/01/25 11:32 Labs: Short CBC 01/01/25 Range/Units 11:32 WBC 11.2 H (3.6-11.0) Thou/mm3 Hgb 10.3 L (12.0-16.0) g/dL Hct 32.5 L (36.0-46.0) % Plt Count 131 L (140-440) Thou/mm3 BMP 01/01/25 11:32 Sodium 138 Potassium 3.6 Chloride 107 Carbon Dioxide 19.8 L BUN 9 Creatinine 0.7 Glucose 124 H Calcium 9.0 Liver Function 01/01/25 Range/Units 11:32 Total Bilirubin 0.5 (0.3-1.2) mg/dL AST 17 (0-34) U/L ALT 8 L (10-49) U/L Alkaline Phosphatase 232 H (46-116) U/L Albumin 3.8 (3.5-5.0) gm/dL Urine 01/01/25 Range/Units 11:10 Urine Color Colorless A (Lt Yel-Yel) Urine Clarity Clear (Clear/Hazy) Urine pH 6.5 (5.0-7.0) Ur Specific [place] 1.005 (1.001-1.035) Urine Protein Negative (Neg - Trace) Urine Glucose (UA) Negative (Negative) OB Assessment & Plan Assessment and Plan (1) Normal labor and delivery: Status: Acute Additional Plan Induction method: per misoprostol protocol Plan: induction, anticipate NVD and consult MD darden
[2025-01-02] VITALS (122 sets, daily range): BP systolic 90–145; BP diastolic 50–97; PULSE 59–109; RESP 14–17; TEMP 36.7–37.4; O2SAT 91–100
[2025-01-02] MEDS: RINGERS LACTATED 1000 ML 1,000 ML 999 ML IV (03:19)
--- NOTE | 2025-01-02 09:36 | PD.LDPN ---
Documentation for date of: 01/02/25 OB Labor Progress Note Pain Control Pain control: tolerating well Pelvic Exam Dilation (cm): 2.5 Effacement (%): 70 station: -3 Amniotic membrane status: Ruptured Contractions Monitor mode: External Contraction frequency: q 5 Contraction duration: 40-60 Contraction phase: Resting Contraction intensity: Moderate Status status: Category l Assessment and Plan Assessment: induction ongoing Plan OB labor note: begin Pitocin augmentation CNM Management MD Consulted (describe details below): Yes History of Present Illness HPI 24-year-old 1 para 0 for induction of labor. Patient was a transfer of care at [address] Horton office. With records. Patient denies social habits. Denies surgery. Denies chronic illness. Her last. Was March 29, 2024. This gives due date January 03, 2025 that was based on a 28-week ultrasound. Otherwise patient has poor dates. O-, antibody screen negative. Patient got her RhoGAM at 28 weeks. GC and Chlamydia were negative. GBS negative. Her 1 hour was 145. 3-hour GTT was not done because A1c was 4.9 rubella immune, RPR nonreactive. GC and Chlamydia were negative. Hepatitis B negative, HIV negative, and hep C negative. aFP, NIPT and carrier screens were all negative. Reports movement. Denies leaking or bleeding. Today in the office patient was complaining of general body itching that got worse in the last few days. And she had a mild elevation of blood pressure as well so patient was sent to labor and delivery for NST, BPP. PIH labs which were normal. And a sonogram that showed EFW of 3100 g.
[2025-01-02] MEDS: OXYTOCIN in NS 30 units 30 UNIT/500 ML BAG IV (11:28)
[2025-01-02] MEDS: fentaNYL CIT INJ 50 mCg/ML AMP 2ML 100 MCG IVP (16:44)
[2025-01-02] MEDS: RINGERS LACTATED 1000 ML 1,000 ML 100 ML IV (19:30)
[2025-01-03] VITALS (141 sets, daily range): BP systolic 101–181; BP diastolic 51–104; PULSE 53–171; RESP 14–20; TEMP 36.6–37.8; O2SAT 81–100
[2025-01-03] MEDS: Ampicillin Inj 2,000 MG in SODIUM CHLORIDE 0.9% (POP) 100 ML 100 MG IV (01:09)
[2025-01-03] MEDS: ACETAMINOPHEN IVPB 1,000 MG/100 ML VIAL 250 MG IV ×2 (01:51→06:46)
[2025-01-03] MEDS: Ampicillin Inj 1,000 MG in SODIUM CHLORIDE 0.9% (Popper) 50 ML 50 MG IV ×5 (06:14→21:42)
[2025-01-03] MEDS: MINERAL OIL 30 ML UDC TOP (08:12)
[2025-01-03] MEDS: OXYTOCIN INJ 10 UNIT/ML VIAL IM (08:13)
[2025-01-03] MEDS: OXYTOCIN in NS 20 units 20 UNIT/1,000 ML BAG 125 UNIT IV ×2 (08:13→18:26)
[2025-01-03] MEDS: TRANEXAMIC ACID 1,000 MG IVPB 1,000 MG/100 ML BAG 200 MG IV ×2 (08:35→09:52)
[2025-01-03] MEDS: BENZO/LANO/ALOE (Dermoplast) 60 GM CAN 1 SPRAY TOP (08:50)
[2025-01-03] MEDS: IBUPROFEN TAB 400 MG TABLET 800 MG PO ×2 (08:51→20:28)
[2025-01-03] MEDS: GENTAMICIN/NS 80 MG IVPB 80 MG in PRE-MIXED 1 BAG 50 MG IV (09:11)
--- NOTE | 2025-01-03 09:59 | PD.LDDELS ---
Data (Kim) Data Hx Section: No : 1 Term: 0 : 0 Livin Abortions: Spontaneous & Theraputic: 0 Delivery Data (Kim) Labor Data Initiation of labor: Induction Induction/Augmentation Agent: Cervidil and Pitocin ROM date: 01/02/25 ROM time: 03:00 Amniotic membrane rupture type: Spontaneous Amniotic fluid description: Clear Delivery Data EDC: 01/03/25 EDC calculated by:: LMP/early US confirmation Date of arrival to unit: 01/01/25 Time of arrival to unit: 11:01 Onset of labor date: 01/02/25 Onset of labor time: 18:30 Complete dilation date: 01/03/25 Complete dilation time: 03:45 delivery date: 01/03/25 delivery time: 08:08 Gestational age (weeks): 39 Gestational age (days): 5 Placenta delivery date: 01/03/25 Placenta delivery time: 08:10 Stage 1 total time: Labor - Stage 1 Duration 10 hours and 15 minutes Delivered by: Rogelio Delivery nurse: Nancy Perdomo nurse: Porsche Assistant Film Editor at delivery: No Support person(s) at delivery: FOB Delivery Method Delivery method: Normal Vaginal Delivery Presentation: Vertex position: OA Anesthesia Type Anesthesia Type: Epidural Delivery Room Medications Delivery room medications given: fwntanyl, ampicillin Delivery room medications: Pitocin 10 u IM, Pitocin 20 u IV, Cytotec 800 MD and other (txa x2, gentamycin 80mg, pharmacy to dose) Placenta Placenta delivery description: Spontaneous Cord blood sent to lab: Yes cord blood collection: Cord Blood Type Episiotomy Episiotomy description: Midline Lacerations #1: Labial: left labia and vaginal tears Perineal repair Sutures used for repair: 3.0 Vicryl (2.0) EBL Estimated blood loss (ml): 400 Umbilical Cord cord description: 3 Vessels and Nuchal Cord (and foot) Data (Kim) Data order: 1 's gender: Male Identification band number: [id number] weight (gms): 3315 g Weight (pounds): 7 lbs and 4.9 ozs [place] length: 53 cm 1 minute: 8 5 minutes: 9
[2025-01-03] MEDS: HYDROcodone/APAP 5/325 TABLET 1 TAB PO (11:49)
[2025-01-03 18:28] LABS: Basophils # (Auto) 0.0 Thou/mm3 (0.0-0.2); Basophils % (Auto) 0 % (0-2.5); Eosinophils # (Auto) 0.0 Thou/mm3 (0.0-0.5); Eosinophils % (Auto) 0 % (0-10); Hematocrit 28.7 % (36.0-46.0); Hemoglobin 9.1 g/dL (12.0-16.0); Immature Granulocytes Auto 0.13 Thou/mm3 (0.00-0.00); Lymphocytes # (Auto) 2.1 Thou/mm3 (1.0-4.8); Lymphocytes % (Auto) 10 % (10-50); Mean Corpuscular HGB Conc 31.7 g/dl (31.0-37.0); Mean Corpuscular Hemoglobin 25.6 pg (25.0-35.0); Mean Corpuscular Volume 81 fL (80-100); Monocytes # (Auto) 1.0 Thou/mm3 (0.0-0.8); Monocytes % (Auto) 5 % (0-12); Neutrophils # (Auto) 16.9 Thou/mm3 (1.8-7.7); Neutrophils % (Auto) 84 % (37-80); Nucleated Red Blood Cell # 0.00 Thou/mm3 (0.00-0.00); Nucleated Red Blood Cell % 0 /100 WBC (0); Platelet Count 125 Thou/mm3 (140-440); RDW Standard Deviation 46.3 fL (36.4-46.3); Red Blood Count 3.55 Miln/mm3 (4.00-5.20); White Blood Count 20.2 Thou/mm3 (3.6-11.0)
[2025-01-03] MEDS: DOCUSATE SOD 100 MG CAPSULE PO (20:29)
[2025-01-04] MEDS: Ampicillin Inj 1,000 MG in SODIUM CHLORIDE 0.9% (Popper) 50 ML 50 MG IV ×2 (01:57→06:05)
[2025-01-04 04:00] VITALS: BP 106/73; PULSE 81; RESP 16; TEMP 37.1; O2SAT 97
[2025-01-04] MEDS: IBUPROFEN TAB 400 MG TABLET 800 MG PO (07:44)
[2025-01-04] MEDS: DOCUSATE SOD 100 MG CAPSULE PO (07:44)
[2025-01-04 07:45] VITALS: BP 114/75; PULSE 86; RESP 17; TEMP 36.9; O2SAT 98
--- NOTE | 2025-01-04 08:41 | PD.LDPPPRG ---
Subjective Subjective Interval history: Pain is improved. Patient is bonding and breast-feeding with baby. No complaints of dizziness. Exam Vital Signs Temp Pulse Resp BP Pulse Ox O2 Del Method 98.7 F 81 16 106/73 97 Room Air 01/04/25 04:00 01/04/25 04:00 01/04/25 04:00 01/04/25 04:00 01/04/25 04:00 01/04/25 04:00 Narrative Exam Vital signs stable afebrile. Breast is soft. Fundus firm below the umbilicus. Perineum intact minimal swelling. Small lochia. Uterus is well involuted. 2+ DTRs. Negative Homans' sign. Objective Labs 01/03/25 18:08 01/01/25 11:32 Labs: Laboratory Results - last 24 hr 01/03/25 18:08 WBC 20.2 H D RBC 3.55 L Hgb 9.1 L Hct 28.7 L MCV 81 MCH 25.6 MCHC 31.7 RDW Std Deviation 46.3 Plt Count 125 L Neut % (Auto) 84 H Lymph % (Auto) 10 [place] % (Auto) 5 Eos % (Auto) 0 Baso % (Auto) 0 Neut # (Auto) 16.9 H Lymph # (Auto) 2.1 [place] # (Auto) 1.0 H Eos # (Auto) 0.0 Baso # (Auto) 0.0 Immature Gran # (Auto) 0.13 H Absolute Nucleated RBC 0.00 Immature Gran % 1 H Nucleated RBC % 0 Assessment & Plan Problem List (1) Normal labor and delivery: Status: Acute Assessment Comment Assessment comment: 24 hr pp Plan Comment Plan Comment: Discharge home today with baby. Continue vitamins and iron. Tylenol or ibuprofen for pain. Discussed danger signs and symptoms and ER precautions. I discussed signs and symptoms of infection. Discussed comfort measures for episiotomy and vaginal lacerations. Sitz bath's. Increase fiber and fluids. Return in 2 weeks visit Time Spent With Patient Time: Total time spent is greater than 50% in coordination of care (as documented) at patient's floor/unit and/or counseling patient:
--- NOTE | 2025-01-04 08:43 | PD.LDDS ---
DS: Providers Provider Date of admission: 01/03/25 08:23 Primary care physician: Physician No Primary/Family Admitting Provider: Zulema Castañeda CNM Attending Provider on Admission: Zulema Castañeda CNM Consults: 01/03/25 10:22 Referral Routine Comment: Attending Provider on DC: Zulema Castañeda CNM Discharging Provider: Zulema Castañeda CNM DS: Diagnosis Problem List Completed Was Problem List Reviewed/Reconciled?: Yes Summary/Hosp Course Brief History: 24-year-old 1 para 0 for induction of labor. Patient was a transfer of care at [address] Horton office. With records. Patient denies social habits. Denies surgery. Denies chronic illness. Her last. Was March 29, 2024. This gives due date January 03, 2025 that was based on a 28-week ultrasound. Otherwise patient has poor dates. O-, antibody screen negative. Patient got her RhoGAM at 28 weeks. GC and Chlamydia were negative. GBS negative. Her 1 hour was 145. 3-hour GTT was not done because A1c was 4.9 rubella immune, RPR nonreactive. GC and Chlamydia were negative. Hepatitis B negative, HIV negative, and hep C negative. aFP, NIPT and carrier screens were all negative. Reports movement. Denies leaking or bleeding. Today in the office patient was complaining of general body itching that got worse in the last few days. And she had a mild elevation of blood pressure as well so patient was sent to labor and delivery for NST, BPP. PIH labs which were normal. And a sonogram that showed EFW of 3100 g. Peripartum Data Delivery Method: Normal Vaginal Delivery Episiotomy Description: Midline Laceration Description: yes (labia and vag) complications: none Time Spent with Patient Time attestation: Total time spent providing and/or coordinating discharge services: Exam Vital Signs Temp Pulse Resp BP Pulse Ox O2 Del Method 98.7 F 81 16 106/73 97 Room Air 01/04/25 04:00 01/04/25 04:00 01/04/25 04:00 01/04/25 04:00 01/04/25 04:00 01/04/25 04:00 Discharge Plan Plan Patient Disposition: HOME (Self Care) Patient condition on transfer: Stable Prescriptions/Referrals Prescriptions/Med Rec: No Action No Known Home Medications Referrals: No Primary/Family,Physician [Primary Care Provider] Patient/Caregiver Discharge Instructions Discharge Activity: resume usual activities Print Language: [place] Activity Restrictions/Additional Instructions: Today [place] baby. Continue vitamins and iron. Tylenol or ibuprofen for pain. Danger signs and symptoms. Discussed ER precautions with parameters. I discussed infections with patient discussed wound care and sitz bath's. And increase fluids and roughage and return in 2 weeks visit Stand Alone Forms: Tanika Award Info., Patient Portal Info Letter Discharge Order Discharge Orders: Discharge (Routine); Ordered 01/04/25 Ordered By: Zulema Castañeda Planned Discharge Date 01/04/25
[2025-01-06 13:49] LABS: Chenodeoxycholic Acid* 0.6 umol/L (< OR = 3.9); Cholic Acid* <0.5 umol/L (< OR = 2.8); Deoxycholic Acid* <0.5 umol/L (< OR = 2.3)
[2025-01-07 06:44] LABS: Total Bile Acids <1.5 umol/L (< OR = 8.3)
== END 2025-01-04 12:40 | disposition home or self-care (01) | DRG 560 ==
LOC: S4S1 08:23 → S4SX 08:23 → S4NX 11:23
PROVIDERS: Admitting Provider Advanced Practice Midwife; Referring Provider Advanced Practice Midwife; Visit Provider Advanced Practice Midwife
DX: O26.643 Intrahepatic cholestasis of pregnancy, third trimester (principal); Z37.0 Single live birth; Z3A.39 39 weeks gestation of pregnancy; O69.81X0 Labor and delivery complicated by cord around neck, without compression, not applicable or unspecified; O70.0 First degree perineal laceration during delivery
CPT/HCPCS: 36415; 59025; 59409; 76805; 80053; 81001; 82570; 83615; 83789; 84156; 84550; 85025; 85384; 85610; 85730; 86780; 86850; 86900; 86901; 87086; 94762; J0290; J1580; J2590; J2795; J3010; J3490; J7050; J7120; A9270